=== PATIENT | female | born 1970 | race Two or more races ===

== ENCOUNTER 2021-07-03 09:23 | Emergency (ER) | payer OTHER ==
[~2021-07-03] VITALS: Ht 165.1 cm; Wt 102.5 kg
== END 2021-07-03 15:49 | disposition home or self-care (01) ==
LOC: ER 09:23
DX: K52.89 Other specified noninfective gastroenteritis and colitis (principal); Z20.822 Contact with and (suspected) exposure to COVID-19

== ENCOUNTER 2021-11-18 01:10 | Emergency (ER) | payer OTHER ==
[~2021-11-18] VITALS: Ht 165.1 cm; Wt 98.9 kg
[2021-11-18] MEDS ORDERED: ACETAMINOPHEN650 M2 PO (05:52)
[2021-11-18] MEDS ORDERED: VITAMIN C WIT1000 MG PO (05:52)
[2021-11-18] MEDS ORDERED: MUCINEX DM ER1 EAC1 PO (05:52)
[2021-11-18] MEDS ORDERED: PEPCID AC20 MG PO (05:52)
[2021-11-18] MEDS ORDERED: ZYRTEC10 MG PO (06:00)
== END 2021-11-18 06:04 | disposition home or self-care (01) ==
LOC: ER 01:10
DX: J06.9 Acute upper respiratory infection, unspecified (principal); B34.9 Viral infection, unspecified; Z20.822 Contact with and (suspected) exposure to COVID-19

== ENCOUNTER → 2024-08-08 | Emergency (ER) | payer OTHER ==
[~2024-08-08] VITALS: Ht 162.6 cm; Wt 101.2 kg
[~2024-08-08] MED LIST: 0.9 % SODIUM CHLORIDE 500 ML IV STA; ACETAMINOPHEN650 M2 PO; CARAFATE1 GM PO; CLONAZEPAM0.5 MG PO; FAMOTIDINE/PF 20 MG/2 ML VIAL ONE; FAMOtidine 10 MG/ML (4ML VIAL) IV PUSH STA; HYOSCYAMINE SULFATE 0.125 MG TAB.SUBL ONE; HYOSCYAMINE SULFATE 0.125 MG TAB.SUBL SL ONE; KETOROLAC TROMETHAMINE 30 MG VIAL IV STA; KETOROLAC TROMETHAMINE 30 MG VIAL ONE; LEVSIN/SL0.125 MG SL; METOCLOPRAMIDE HCL 5 MG/ML VIAL IM STA; METOCLOPRAMIDE HCL 5 MG/ML VIAL ONE; MUCINEX DM ER1 EAC1 PO; ONDANSETRON ODT8 MG PO; PEPCID AC20 MG PO; VITAMIN C WIT1000 MG PO; ZYRTEC10 MG PO
== END | disposition home or self-care (01) ==
LOC: ER 02:58
DX: K29.70 Gastritis, unspecified, without bleeding (principal); K21.9 Gastro-esophageal reflux disease without esophagitis; K30 Functional dyspepsia
CPT/HCPCS: 96365; 96366; J1885; J2765; J3490; J7042